=== PATIENT | male | born 1990 | race African-American/Black ===

== ENCOUNTER 2022-02-05 17:06 | Outpatient (CLI) | payer SELFPAY ==
[2022-02-05 23:20] LABS: Chlamydia DNA Amplified* NOT DETECTED (No Detected)
[2022-02-05 23:30] LABS: GC DNA Amplified* DETECTED (No Detected)
== END 2022-02-05 17:07 | disposition home or self-care (01) ==
LOC: LKVREF 17:07
PROVIDERS: Visit Provider Nurse Practitioner Family
DX: Z11.3 Encounter for screening for infections with a predominantly sexual mode of transmission (principal); Z20.2 Contact with and (suspected) exposure to infections with a predominantly sexual mode of transmission
CPT/HCPCS: 87086; 87491; 87591